=== PATIENT | female | born 1945 | race Caucasian/White ===

== ENCOUNTER → 2017-01-04 08:28 | Outpatient (CLI) | payer MEDICARE ==
[2011-10-12 15:38] VITALS: BMI 25.2
== END | disposition home or self-care (01) ==
LOC: D.CT 08:28
DX: R93.8 Abnormal findings on diagnostic imaging of other specified body structures (principal); I73.9 Peripheral vascular disease, unspecified

== ENCOUNTER → 2017-02-18 11:59 | Outpatient (CLI) | payer MEDICARE ==
[2011-10-12 15:38] VITALS: BMI 25.2
== END | disposition home or self-care (01) ==
LOC: D.US 11:59
DX: I65.23 Occlusion and stenosis of bilateral carotid arteries (principal); I73.9 Peripheral vascular disease, unspecified

== ENCOUNTER 2017-06-15 05:43 | Inpatient (IN) | payer MEDICARE ==
--- NOTE | 2017-06-04 10:37 | HP ---
PATIENT: CHAPARRITA VIVAS MEDICAL RECORD: [id number] ACCOUNT: [id number] LOCATION:[facility] : 45 ADMISSION DATE: 06/15/17 HISTORY AND PHYSICAL EXAMINATION NameCHAPARRITA VIVAS (72yo, F) ID# [id number]. Date/Time05/26/2017 10:93UWEPC1945Ser[facility] Dept.NPP_Center Cardiovascular Surgery ClinicProviderEDLAINE COON MDInsuranceMed Primary: [facility] (MEDICARE REPLACEMENT/ADVANTAGE - PPO) Insurance # : [id number] Policy/Group # : [id number] Employer Name : [employer] Prescription: ORX - Member is eligible. Chief Complaint AAA, abdominal aortic aneurysm, PVD - peripheral vascular disease following PVD and abd aortic saccular aneurysm three months f/u Patient's Care Team Primary Care Provider: CHRISTIAN MARIE MD: [address] [place] [address], , Patient's Pharmacies [facility] ([facility]): [address] [place] [id number], , Vitals BP:112/74 sitting L arm 05/26/2017 10:19 amBP Cuff Size:adult 05/26/2017 10:19 amHR:76,reg 05/26/2017 10:19 amHt:5 ft 3 in 05/26/2017 10:15 amWt:125 lbs 05/26/2017 10:20 amNotes:no complaints 05/26/2017 10:20 amBMI:22.1 05/26/2017 10:20 amAllergies Reviewed Allergies NKDAMedications Reviewed Medications ALPRAZolam 0.25 mg ilpquk36/03/17 filledPRESCRIPTION SOLUTIONSaspirin 325 mg tablet Take 1 tablet(s) every day by oral route.01/21/17 enteredCindy Brownbenzonatate 100 mg capsule TAKE 1 CAPSULE BY MOUTH THREE TIMES DAILY NEEDED FOR COUGH THANK YOU09/17/16 filledsurescriptslisinopril 20 mg-hydrochlorothiazide 25 mg hitdgi22/26/17 filledPRESCRIPTION SOLUTIONSmetoprolol succinate ER 100 mg tablet,extended release 24 hr04/12/17 filledPRESCRIPTION SOLUTIONSpravastatin 20 mg jpjuwa98/26/17 filledPRESCRIPTION SOLUTIONSSuprep Bowel Prep Kit 17.5 gram-3.13 gram-1.6 gram oral cdestkuo30/04/17 filledPRESCRIPTION SOLUTIONSProblems Reviewed Problems Aneurysm of left iliac artery - Onset: 05/26/2017 Abdominal aortic aneurysm without rupture - Onset: 05/26/2012 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 - Onset: 01/31/2017 Bilateral carotid artery stenosis - Onset: 01/31/2017 Atherosclerosis of arteries of the extremities - Onset: 01/21/2017 Family History Reviewed Family History Father- Malignant tumor of kidneyMother- History of hypertensionBrother- Heart diseaseSocial History Reviewed Social History Cardiology HISTORY AND PHYSICAL [id number] CHAPARRITA VIVAS Family history of heart disease?: Y Smoking Status: Current every day smoker High Cholesterol: Y High blood pressure: Y Marital status: Surgical History Reviewed Surgical History Other - Bilaterial carotid Endarterectomy Other - hysterectomy RESEARCH ATTORNEY History (not configured) Past Medical History Reviewed Past Medical History Aortic Aneurysm: Y - Abdomen COPD: Y Carotid Stenosis: Y Hypertension: Y Documents for Discussion N/A Screening None recorded. HPI Peripheral Vascular Disease Reported by patient. Location: hip to foot, gets a heavy sensation Severity: interferes with normal activity Duration: has noted for years Onset/Timing: intermittent; daily Context: during walking Alleviating Factors: rest Aggravating Factors: walking Associated Symptoms: no weakness; no numbness; no paresthesias; no skin discoloration; no fever mild claudication Large left iliac artery aneurysm Saccular aneurysm of the aorta ROS Patient reports no chest pain, no arm pain on exertion, no shortness of breath when walking, no shortness of breath when lying down, no palpitations, and no known heart murmur; she can only walk through half of [employer] before she develops claudication or lower extremities bilaterally. She reports muscle aches, muscle weakness, and arthralgias/joint pain but reports no back pain and no swelling in the extremities. She reports no fever, no night sweats, no significant weight gain, no significant weight loss, and no exercise intolerance. She reports no dry eyes, no irritation, and no vision change. She reports no difficulty hearing and no ear pain. She reports no frequent nosebleeds and no nose/sinus problems. She reports no sore throat, no bleeding gums, no s n oring, no dry mouth, no mouth ulcers, no oral abnormalities, and no teeth problems. She reports no jugular vein distension and no swollen glands. She reports no cough, no wheezing, no shortness of breath, and no coughing up blood. She reports no abdominal pain, no vomiting, normal appetite, no diarrhea, not vomiting blood, no nausea, and no constipation. She reports no incontinence, no difficulty urinating, no hematuria, and no increased frequency. She reports no abnormal mole, no jaundice, and no rashes. S he reports no loss of consciousness, no weakness, no numbness, no seizures, no dizziness, and no headaches. She reports no HISTORY AND PHYSICAL [id number] TOLLESONCHAPARRITA depression, no sleep disturbances, feeling safe in relationship, and no alcohol abuse. She reports no fatigue. She reports no swolle n glands and no bruising. She reports no runny nose, no sinus pressure, no itching, no hives, and no frequent sneezing. ROS as noted in the HPI Physical Exam Patient is a 72-year-old female. Constitutional: General Appearance well nourished and developed and healthy-appearing. Level of Distress NAD. Ambulation ambulating normally. Cardiovascular: Apical Impulse not displaced or no thrill. Heart Auscultation normal s1 and s2; no murmurs, rubs, or gallops; and RRR. Arterial Pulses no abdominal aor ta bruits, femoral bruits, or popliteal bruits and 2+ bilateral, carotid 2+ bilateral, femoral 2+ bilateral, popliteal 2+ bilateral, and dorsalis pedis not palpable (bilaterally); good posterior tibial pulse right none on the left. Edema no edema or varicosities. Lungs: Repiratory Effort no dyspnea. Percussion no hyperresonance or dullness or flatness. Auscultation no wheezing, rhonchi, or rales / crackles and breathing sounds normal, good air movement, and CTA except as noted. Abdomen: Bowl Sounds normal . Inspection and Palpation no tenderness, guarding, masses, or rebound tenderness and soft and non-distended. Liver non-tender and no hepatomegaly. Spleen non-tender and no splenomegaly. Hernia none palpable. Musculoskeletal System: Gait And Stance normal gait and stance. Digits and Nails normal nails and no cyanosis. Neurologic: Cranial Nerves grossly intact. Reflexes DTRs 2+ bilaterally throughout. Sensation grossly intact. Lymph Nodes: Lymph Nodes no cervical LAD, supraclavicular LAD, axillary LAD, or inguinal LAD. Eyes: Lids and Conjunctivae no discharge or pallor and non-injected. Pupils PERRLA. Cornea grossly intact. EOM EOMI. Lens clear. Sclera non-icteric. Neck: Neck no masses or enlarged lymph nodes and supple, trachea midline, and carotid bruits (bilateral). Thyroid no enlargement or nodules and non-tender. Skin: Inspection and Palpation no rash, lesions, ulcers, jaundice, or abnormal nevi. Assessment / Plan left iliac artery aneurysm and stenosis Penetrating abdominal aortic ulcer 1. 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 Atherosclerosis of arteries of the extremities I70.209: Unspecified atherosclerosis of cantwell arteries of extremities, unspecified extremity 3. Abdominal aortic aneurysm without rupture HISTORY AND PHYSICAL [id number] CHAPARRITA VIVAS I71.4: Abdominal aortic aneurysm, without rupture ABDOMINAL AORTIC ANEURYSM: CARE INSTRUCTIONS 4. Aneurysm of left iliac artery I72.3: Aneurysm of iliac artery Discussion Notes she would like to proceed with endovascular stent repair of her abdominal and iliac artery aneurysms She is a candidate for an endovascular stent Endologix I have discussed her disease process with her in det ail as well as the alternative methods of treatment. We have discussed endovascular stent repair including the expected benefits and risk which included bleeding, infection, stroke, , and the imponderables. She understands all of the above and wishes to proceed with planned procedure Schedule between now and the end the year BRITT COON MD at 1037 CC: [id number] DICTATION DATE: 05/26/17 1015 ASSOCIATION EXECUTIVE: ANA 05/30/17 1402 PRE IN [facility] [address] [place] [address]
[2017-06-14 11:12] LABS: BASOPHILS 0.4 % (0-2); EOSINOPHILS 1.9 % (0-7); HEMOGLOBIN 12.9 g/dL (12-16); IMMATURE GRANULOCYTES 0.1 % (0-5); MCH 30.4 pg (26.0-34.0); MCHC 32.3 g/dL (31.0-37.0); MCV 94.3 fL (80.0-100.0); MEAN PLATELET VOLUME 10.6 fL (7.4-10.4); MONOCYTES 5.1 % (2-11); NEUTROPHILS 67.5 % (40-80); RBC 4.24 10x6/uL (4.00-5.40); RDW 13.5 % (11.5-14.5); WBC 7.8 10x3/uL (4.8-10.8)
[2017-06-14 11:22] LABS: APTT 32.6 SECONDS (22.8-39.4); INR 0.91 (0.85-1.17); PROTIME 12.1 SECONDS (11.6-15.0)
[2017-06-14 11:23] LABS: PLATELET COUNT 256 10x3/uL (130-400)
[2017-06-14 11:29] LABS: ALBUMIN 3.6 g/dL (3.4-5.0); ANION GAP 11.1 mmol/L (8-16); BILIRUBIN - TOTAL 0.3 mg/dL (0.2-1.3); CALCIUM 9.1 mg/dL (8.5-10.1); CARBON DIOXIDE 31.2 mmol/L (21.0-32.0); CREATININE - SERUM 1.1 mg/dL (0.6-1.3); POTASSIUM - SERUM 3.3 mmol/L (3.5-5.1); PROTEIN - SERUM 7.5 g/dL (6.4-8.2)
[2017-06-14 11:32] LABS: APPEARANCE CLEAR (CLEAR); BILIRUBIN NEGATIVE (NEGATIVE); COLOR STRAW (YELLOW); GLUCOSE NEGATIVE (NEGATIVE); KETONE NEGATIVE (NEGATIVE); NITRITE NEGATIVE (NEGATIVE); PROTEIN NEGATIVE (NEGATIVE); SPECIFIC GRAVITY 1.005 (1.005-1.020); UROBILINOGEN NORMAL (NORMAL)
[~2017-06-15] VITALS: Ht 160 cm; Wt 60.8 kg
[2017-06-15] VITALS (38 sets, daily range): BP systolic 92–203; BP diastolic 45–89; BMI 22.7; BMI 23.7
[~2017-06-15 05:43] MED LIST: BAYER ASPIRIN325 MG PO; LISINOPRIL-HCTZ1 T13 PO; PRAVACHOL20 MG PO; TOPROL XL100 MG PO; VITAMIN B-12500 MCG PO; VITAMIN C1000 MG PO; VITAMIN D31000 UNIT PO
--- NOTE | 2017-06-15 11:35 | NUR ---
RECIEVED FROM OR. ATTACHED TO ICU MONITORS. VSS. SHIFT ASSESSMENT COMPLETE PER FLOWSHEET. REFER FOR DETAILS. BILAT GROIN INCISIONS C/D/I. NO EVIDENCE OF HEMATOMA. PPP. WILL CONT TO ASSESS FOR CHANGES.
--- NOTE | 2017-06-15 12:00 | NUR ---
FAMILY AT BEDSIDE. UPDATE PROVIDED.
--- NOTE | 2017-06-15 13:00 | NUR ---
NITRO GTT BIENG TITRATED NEEDED.
--- NOTE | 2017-06-15 15:04 | NUR ---
REASSESSMENT COMPLETE PER FLOWSHEET. NO CHANGES NOTED AT THIS TIME. BILAT GROIN SITE DRESSING C/D/I. NO SIGN OF HEMATOMA NOTED. PPP.
--- NOTE | 2017-06-15 16:02 | NUR ---
RESPIRATORY IN ROOM WITH PATIENT. INSTRUCTED ON USE OF INCENTIVE SPIROMETRY.
--- NOTE | 2017-06-15 18:11 | NUR ---
PT AWAKE, HAS HAD FAMILY AT BEDSIDE. NITRO WEANED OFF.
--- NOTE | 2017-06-15 19:00 | NUR ---
REPORT RECEIVED AND CARE ASSUMED INITIAL SHIFT ASSESSMENT COMPLETED SEE FLOWSHEET. PT IS BEING MONITORED PER STANDARD CVICU PROTOCOL WITH ALL ALARMS SET AND VERIFIED. NIBP CUFF USED TO VERIFIED A-LINE WHICH IS POSITIONAL. PT DOES HAVE L SC CVL WITH IVF PER PUMP RECORDED ON MAR AND FLOWSHEET. IV LINES AND FLUIDS ARE LABELED APPROPRIATELY AND ARE CURRENT NOT DUE TO BE CHANGED. PT IS TOLERATING CL DIET DENIES N/V. HAS BILAT GROIN DRESSINGS OVER SURGICAL ENTRY SITES. AREA IS SOFT AND SUPPLE NO BLEEDING NOTED. PT ENCOURAGED TO DO IS AND DID [id number] ML X 10. CALL LIGHT IN REACH BED IN LOW POSITION. PT ENCOURAGED TO CALL FOR ANY NEEDS.
--- NOTE | 2017-06-15 19:10 | NUR ---
PT WITH PERSISTING LOW B/P NO EVIDENCE OF BLEEDING PER DRESSING SITES OR PERITONEAL. RT NOTIFED FOR NEED OF ABG. B/P RESOLVED WITHOUT INTERVENTION.
--- NOTE | 2017-06-15 21:00 | NUR ---
HS MEDS ADMINISTERED AFTER PT TEACHING FOR USE AND INDICATIONS. PT VERBALIZED UNDERSTANDING. NO SWALLOWING DIFFICULTIES NOTED. HS SNACK OF POPSICLE PROVIDED PER REQUEST. NO VISITORS THIS EVENING
--- NOTE | 2017-06-15 23:00 | NUR ---
SHIFT REASSESSMENT COMPLETED SEE FLOWSHEET. NO SIGNIFICANT CHANGES. DID NOTE PT'S SBP ELEVATED QUICKLY TO 160 WHEN SHE WAS TALKING ABOUT HER SON'S EX WHO DID HIM WRONG. PT'S SBP RESPONDED VERY QUICKLY TO EMOTIONAL UPSET. PT EASILY CALMED AND SBP RETURNED TO BASELINE QUICKLY. PT WAS SET UP FOR HS PERSONAL HYGIENE AND WAS ABLE TO PERFORM OWN CARE EXCEPT F/C CARE. DENIES NEEDS AT THIS TIME. PT IS BEING COMPLIANT WITH IS AND DOING INDEPENDENTLY FREQUENTLY DIRECTED
[2017-06-16] VITALS (13 sets, daily range): BP systolic 99–152; BP diastolic 43–87; Ht 160 cm; Wt 60.8 kg
--- NOTE | 2017-06-16 01:00 | NUR ---
PT TAKING SHORT NAPS ONLY. DENIES PAIN AND HAS NO REQUESTS
--- NOTE | 2017-06-16 03:00 | NUR ---
SHIFT REASSESSMENT COMPLETED SEE FLOWSHEET. NO SIGNIFICANT CHANGES. PT HAS BEEN SLEEPING BETTER THAN FIRST 1/2 OF NIGHT
--- NOTE | 2017-06-16 03:45 | NUR ---
ELEMENTARY VOCAL MUSIC TEACHER AT BEDSIDE FOR PCXR PT WITH NO C/O
--- NOTE | 2017-06-16 05:30 | NUR ---
REHANA ALTAMIRANO PA HERE TO SEE PT. UPDATE GIVEN. PT AWAKE CHEERFUL DENIES NEEDS. INDEPENDENT WITHIN THE CONFINES OF BED
[2017-06-16 06:01] LABS: MCH 30.5 pg (26.0-34.0); MCHC 32.3 g/dL (31.0-37.0); MCV 94.4 fL (80.0-100.0); RDW 14.2 % (11.5-14.5); WBC 9.6 10x3/uL (4.8-10.8)
[2017-06-16 06:04] LABS: HEMATOCRIT 28.5 % (36.0-48.0); HEMOGLOBIN 9.2 g/dL (12-16); RBC 3.02 10x6/uL (4.00-5.40)
[2017-06-16 06:15] LABS: ANION GAP 10.1 mmol/L (8-16); CALCIUM 7.4 mg/dL (8.5-10.1); CARBON DIOXIDE 30.8 mmol/L (21.0-32.0); CREATININE - SERUM 1.1 mg/dL (0.6-1.3)
[2017-06-16 06:23] LABS: POTASSIUM - SERUM 2.9 mmol/L (3.5-5.1)
--- NOTE | 2017-06-16 06:48 | NUR ---
RT AT BEDSIDE FOR ASSISTING WITH IS AND TEACHING
--- NOTE | 2017-06-16 07:00 | NUR ---
DISCUSSED LAB RESULTS WITH ONCOMING RN WHO WILL NOTIFIY DR. COON OF RESULTS. ONLY MINIMAL CHANGES, PT ASYMPTOMATIC
--- NOTE | 2017-06-16 07:15 | NUR ---
RECIEVED REPORT FROM HAZMAT TANKER DRIVER NURSE. PT'S VSS. SHIFT ASSESSMENT COMPLETE FLOWSHEET. REFER FOR DETAILS. BILAT GROIN INCISIONS C/D/I. NO EVIDENCE OF HEMATOMA. PPP. WILL CONT TO ASSESS FOR CHANGES. R RADIAL A-LINE INTACT WITH GOOD PERFUSION NOTED TO EXT. LEFT DL SC DRESSING INTACT WITH MEDICATIONS INFUSING PER PER FLOWSHEET. CALL LIGHT IN REACH. BED IN LOW POSITION. PLAN OF CARE CONT'D.
--- NOTE | 2017-06-16 08:45 | NUR ---
R RADIAL A-LINE AND F/C REMOVED ORDERED. CATHETER'S REMOVED WERE INTACT. NO ISSUES NOTED UPON REMOVAL. ASSISTED TO RECLINER WITH MIN ASSIST. CALL LIGHT IN REACH. INSTRUCTED PT TO USE CALL LIGHT IF SHE NEEDED TO USE THE RESTROOM.
[2017-06-16] MEDS ORDERED: PLAVIX75 MG PO (09:30)
[2017-06-16] MEDS ORDERED: HEMOCYTE PLUS C1 CAP PO (09:31)
[2017-06-16] MEDS ORDERED: ASPIRIN81 MG PO (09:31)
[2017-06-16] MEDS ORDERED: HYDROCODON-ACE1 EAC7 PO (09:34)
--- NOTE | 2017-06-16 10:56 | NUR ---
* Is the patient Alert and Oriented? Yes 0 * How many steps to enter\exit or inside your home? 0 0 * PCP Dr. Minaya 0 * Pharmacy [facility] 0 * Preadmission Environment Home Alone 0 * ADLs Independent 0 * List name and contact numbers for known caregivers / representatives who currently or will assist patient after discharge: Son Vasquez Vivas [phone] 0 * Additional services required to return to the preadmission environment? No 0 * Can the patient safely return to the preadmission environment? Yes 0 * Has this patient been hospitalized within the prior 30 days at any hospital? No Patient Name: CHAPARRITA VIVAS Admission Status: Elective Accout number: [id number] Admission Date: 06-15-2017 : 1945 Admission Diagnosis: Attending: BRITT COON Current LOS: 1 Anticipated DC Date: 06-17-2017 Planned Disposition: Home Primary Insurance: [facility] Discharge Planning Comments: CM met with patient to assess dc plans/needs. Patient states she lives alone and is independent with all ADL's & IADL's. She does not use any DME or had home health services in the past. She plans to go stay with her son, Julián, in [place] while she recovers. No needs verbalized or identified at this time. CM will follow. Environmental Remediation Engineer: Carolee Martinez
--- NOTE | 2017-06-16 11:00 | NUR ---
REASSESSMENT COMPLETE PER FLOWSHEET. NO CHANGES NOTED.
--- NOTE | 2017-06-16 13:30 | NUR ---
DC INSTRUCTIONS REVIEWED WITH PT. QUESTIONS AND CONCERNS ADDRESSED. WHILE LAYING DOWN IN THE BEDD CENTRAL LINE REMOVED WITH CATHETER INTACT. OCCLUSIVE DRESSING PLACED OVER SITE. NO ISSUES NOTED UPON REMOVAL. INSTRUCTED PT TO REMIAN IN BED SO I COULD MONITOR SITE.
--- NOTE | 2017-06-16 14:00 | NUR ---
D/C VIA W/C TO PERSONAL VEHICLE.
--- NOTE | 2017-06-17 16:03 | OP ---
PATIENT NAME: CHAPARRITA VIVAS MEDICAL RECORD: [id number] :45 LOCATION:[facility] ADMISSION DATE:06/15/17 SURGEON: CESAR BRADY MD DATE OF OPERATION: 06/15/2017 SURGEON: Cesar Brady MD ANESTHESIA: General endotracheal, Dr. Sandy. OPERATION PERFORMED: 1. Repair of saccular abdominal aortic aneurysm. 2. Repair of left common iliac artery aneurysm. 3. Angioplasty and stenting of the left external iliac artery. 4. Angioplasty of the right external iliac artery. 5. Open exposure of distal iliac artery bilaterally with primary repair bilaterally. PREOPERATIVE DIAGNOSES: 1. Abdominal aortic aneurysm. 2. Left iliac artery aneurysm. 3. Severe peripheral vascular disease with stenotic external iliacs bilaterally. POSTOPERATIVE DIAGNOSES: 1. Abdominal aortic aneurysm. 2. Left iliac artery aneurysm. 3. Severe peripheral vascular disease with stenotic external iliacs bilaterally. INDICATION FOR OPERATION: Saccular abdominal aortic aneurysm. FINDINGS OF THE OPERATION: 1. Aortogram demonstrated a saccular abdominal aortic aneurysm below the renals, also demonstrated a left common iliac artery aneurysm, also demonstrated bilateral external iliac artery stenoses. 2. Status post stent placement left external iliac artery demonstrates a good result with no residual stenosis. 3. Status post angioplasty of the right external iliac artery with a 7 x 40 mm balloon demonstrated an improved channel. ESTIMATED BLOOD LOSS: 150 mL. CONTRAST: 110 mL. FLUOROSCOPY TIME: 12 minutes 15 seconds. DESCRIPTION OF PROCEDURE: After informed consent, adequate preoperative medication and evaluation, the patient was brought to the operating room, placed on the table in the supine position. After induction of general endotracheal anesthesia and application of appropriate monitoring devices, the chest, abdomen and both groins and legs were prepped and draped in a sterile field, utilizing Betadine scrub, alcohol, and Betadine solution. A Betadine-impregnated drape was also used. Bilateral oblique groin incisions were made above the inguinal ligament. Dissection carried down the fascia. Hemostasis maintained with electrocautery. The inguinal ligaments were elevated and the proximal common OPERATIVE REPORT [id number] CHAPARRITA VIVAS and distal iliac arteries were dissected free of surrounding structures, surrounding with vessel loops. A micropuncture technique was used to access the left distal iliac artery due to the diffuse disease in the common femoral artery. A 5-Greek sheath was placed and a retrograde arteriogram demonstrated the severe stenosis at the takeoff of the external iliac artery. A Glidewire was placed across the lesion and a 4 mm balloon used to predilate followed by 6 mm balloon. There was still dissection and stenosis. Therefore, a 6 x 40 stent was deployed, post-dilated with an excellent result and no residual stenosis. The Glidewire was exchanged for an Amplatz wire on the left. Attention was then turned toward the right side. Arteriogram demonstrated the stenotic area in the proximal external iliac artery at the takeoff of the hypogastric. This was predilated with a 7-mm balloon. A 12 sheath was passed through this area; however, an 18 sheath would not pass and therefore a vessel loop was placed around the external iliac artery and exchange made for a smaller sheath. Another aortogram was performed and measurements made. A 20 x 20 x 55 cuff was then placed in the aorta, excluding the saccular aneurysm. This was post-dilated with a coated balloon. Arteriogram demonstrated good coverage. Since we were unable to pass a bifurcated device, a separate device was used on the left. Exchange made for a 14 x 10 x 80 Ovation stent was then placed on the left from the aortic bifurcation into the external iliac artery stent. The hypogastric was total occluded on the left. Arteriogram demonstrated good position and exclusion of the aneurysms with no endoleaks. The wires, catheters and sheaths were removed and the artery was repaired primarily bilaterally with 2 layers of 6-0 Prolene suture. All maneuvers to remove trapped air performed. The incisions were secured and the clamps opened. There was good distal flow bilaterally. The patient was given a calculated dose of protamine to reverse the heparin. Hemostasis was achieved. Wounds were irrigated with copious amounts of antibiotic solution and normal saline. Wounds were closed in layers utilizing 2-0 Vicryl on deep subcutaneous tissue, 3-0 Vicryl on superficial subcutaneous tissue and skin approximated with 5-0 subcuticular Monocryl. Sterile dressings were applied. The patient tolerated the procedure well and was transferred to the CV ICU in satisfactory condition. TRANSINT:[id number] Voice Confirmation ID: [id number] DOCUMENT ID: [id number] CESAR BRADY MD at 1604 CC: [id number] DICTATION DATE: 06/15/17 1142 HOTEL SERVICE SUPERVISOR: 06/15/17 1421 DIS IN 06/16/[address] [facility] [address] [facility] [place] [address]
== END 2017-06-16 14:00 | disposition home or self-care (01) | DRG 268 ==
LOC: D.CVICU 05:43 → D.SDCHOLD 05:43 → D.CVICU 11:15
PROVIDERS: ADMIT Internal Medicine Cardiovascular Disease
PROC: 04VD3DZ Restriction of Left Common Iliac Artery with Intraluminal Device, Percutaneous Approach (ICD-10-PCS; 2017-06-15)
PROC: 047J3DZ Dilation of Left External Iliac Artery with Intraluminal Device, Percutaneous Approach (ICD-10-PCS; 2017-06-15)
PROC: 047H3ZZ Dilation of Right External Iliac Artery, Percutaneous Approach (ICD-10-PCS; 2017-06-15)
PROC: B41D1ZZ Fluoroscopy of Aorta and Bilateral Lower Extremity Arteries using Low Osmolar Contrast (ICD-10-PCS; 2017-06-15)
PROC: 04V03DZ Restriction of Abdominal Aorta with Intraluminal Device, Percutaneous Approach (ICD-10-PCS; principal; 2017-06-15 07:30)
DX: I71.4 Abdominal aortic aneurysm, without rupture (principal); I77.72 Dissection of iliac artery; I72.3 Aneurysm of iliac artery; I70.219 Atherosclerosis of native arteries of extremities with intermittent claudication, unspecified extremity; E78.00 Pure hypercholesterolemia, unspecified; I10 Essential (primary) hypertension; J44.9 Chronic obstructive pulmonary disease, unspecified; F17.200 Nicotine dependence, unspecified, uncomplicated

== ENCOUNTER → 2018-08-22 09:55 | Outpatient (CLI) | payer MEDICARE ==
[2017-06-16 12:29] VITALS: BMI 23.7
[~2018-08-22 09:55] MED LIST changes: +ASPIRIN81 MG PO; +HEMOCYTE PLUS C1 CAP PO; +HYDROCODON-ACE1 EAC7 PO; +PLAVIX75 MG PO
== END | disposition home or self-care (01) ==
LOC: D.CT 06-13 09:00
DX: I71.4 Abdominal aortic aneurysm, without rupture (principal)

== ENCOUNTER → 2019-09-14 09:31 | Outpatient (CLI) | payer MEDICARE ==
[2017-06-16 12:29] VITALS: BMI 23.7
== END | disposition home or self-care (01) ==
LOC: D.HCCECHO 09:31
PROVIDERS: ATTEND Internal Medicine Cardiovascular Disease
DX: I20.9 Angina pectoris, unspecified (principal); I25.10 Atherosclerotic heart disease of native coronary artery without angina pectoris

== ENCOUNTER → 2019-09-28 11:27 | Outpatient (CLI) | payer MEDICARE ==
[2017-06-16 12:29] VITALS: BMI 23.7
== END | disposition home or self-care (01) ==
LOC: D.CT 09-04 10:30
PROVIDERS: ATTEND Internal Medicine Cardiovascular Disease
DX: I71.4 Abdominal aortic aneurysm, without rupture (principal)

== ENCOUNTER → 2019-12-11 12:33 | Outpatient (CLI) | payer MEDICARE ==
[2017-06-16 12:29] VITALS: BMI 23.7
== END | disposition home or self-care (01) ==
LOC: D.US 12:33
PROVIDERS: ATTEND Internal Medicine Cardiovascular Disease
DX: I65.23 Occlusion and stenosis of bilateral carotid arteries (principal)